=== PATIENT | male | born 1975 | race Two or more races ===

== ENCOUNTER 2025-01-13 06:08 | Emergency (ER) | payer OTHER ==
[~2025-01-13] VITALS: Ht 170.2 cm; Wt 72.6 kg
[2025-01-13] MEDS ORDERED: 0.9 % SODIUM CHLORIDE 1,000 ML IV STA (07:40)
[2025-01-13] MEDS ORDERED: MORPHINE SULFATE 4 MG/ML VIAL IV STA (07:41)
[2025-01-13] MEDS ORDERED: PIPERACILLIN/TAZOBACTAM SODIUM 3.375 GM VIAL IV STA (07:42)
[2025-01-13] MEDS ORDERED: KETOROLAC TROMETHAMINE 30 MG VIAL IV STA (07:44)
[2025-01-13 08:41] LABS: HEMOGLOBIN 14.4 g/dL (13-16.00); MEAN CORPUSCULAR HEMOGLOBIN 27.4 pg (27.00-32.0); MEAN CORPUSCULAR HGB CONC 34.2 g/dl (32.0-36.0); PLATELET COUNT 257 K/uL (150-450); RED BLOOD COUNT 5.25 M/uL (4.00-6.00); RED CELL DISTRIBUTION WIDTH 13.9 % (11.5-14.5)
[2025-01-13 09:10] LABS: BILIRUBIN TOTAL 0.42 mg/dL (0.3-1.2); CALCIUM 9.3 mg/dL (8.5-10.1); CREATININE SERUM 1.04 mg/dL (0.70-1.30); GFR 75.59; GLOBULINA 4.9 G/DL (2.4-3.5); POTASSIUM 4.07 mEq/L (3.5-5.1); TOTAL PROTEIN 8.9 gm/dL (6.4-8.2)
[2025-01-13 09:16] LABS: PH,URINE 6.5 (5.0-8.0); URINE APPEARANCE Clear; URINE BILIRRUBIN Negative (NEGATIVE); URINE BLOOD Trace; URINE COLOR Yellow; URINE GLUCOSE Negative (NEGATIVE); URINE KETONE Negative (NEGATIVE); URINE LEUKOCYTE Negative; URINE NITRATE Negative; URINE PROTEIN Negative (NEGATIVE)
[2025-01-13 09:17] LABS: INR 1.15; PROTHROMBIN TIME 12.4 SECONDS (9.0-11.5)
[2025-01-13 09:17] LABS: URINE RBC 73.3 uL (0.0-20.8)
[2025-01-13 09:22] LABS: URINE BACTERIA 2.4 uL (0.0-1933); URINE CAST 0.14 uL (0.0-1.40); URINE EPITHELIAL CELLS 0.9 uL (0.0-38.8); URINE WBC 0.9 uL (0.0-23.2)
[2025-01-13 09:31] LABS: PROSTATIC SPECIFIC ANTIGEN 0.706 NG/ML (0.010-4.00)
== END 2025-01-13 12:55 | disposition home or self-care (01) ==
LOC: ER 06:10
DX: K60.30 Anal fistula, unspecified (principal)